=== PATIENT | female | born 1960 | race Caucasian/White ===

== ENCOUNTER 2021-02-12 11:51 | Inpatient (IN) ==
[2021-02-12] MEDS ORDERED: *HR* Dextrose 50 % in Water (Syg) 50 ML SYRINGE IVP ONE (14:28)
[2021-02-12] MEDS ORDERED: Ondansetron 4 MG/2 ML VIAL IVP PRN (14:36)
[2021-02-12] MEDS ORDERED: Naloxone 0.4 MG/ML INJ IVP PRN (14:36)
[2021-02-12] MEDS ORDERED: Ipratropium/Albuterol Neb 3 ML IH PRN (17:38)
[2021-02-12 17:52] LABS: Bilirubin,Urine Negative (Negative); Blood,Urine Small (Negative); Clarity,Urine Ex.Turbid (Clear); Color,Urine Yellow (Yellow); Glucose,Urine (UA) Normal (Normal); Ketones,Urine Negative (Negative); Leukocyte Esterase,Urine Large (Negative); Nitrite,Urine Negative (Negative); Protein,Urine 200 mg/dL (Neg-Trace); RBC,Urine 30-50 per hpf (0-3); Specific Gravity,Urine 1.011 (1.010-1.025); WBC,Urine TNTC per hpf (0-3)
[2021-02-12] MEDS: Budesonide/Formoterol 160/4.5 1 PUFF INH IH SCH (21:08)
[2021-02-12 21:34] LABS: Hepatitis B Surface Antibody < 3.10 mIU/mL
[2021-02-12 21:43] LABS: Hepatitis B Surface Antigen Nonreactive (Nonreactive)
[2021-02-13 06:35] LABS: Magnesium 1.7 mg/dL (1.6-2.6); Potassium 3.9 mEq/L (3.5-5.1)
[2021-02-13 06:44] LABS: Thyroid Stimulating Hormone 0.494 mcIU/mL (0.340-5.600)
[2021-02-13 07:22] LABS: Hematocrit 26.3 % (35.3-44.9); Hemoglobin 8.6 g/dL (11.5-15.4); Mean Corpuscular HGB Conc 32.7 g/dL (31.6-35.5); Mean Corpuscular Hemoglobin 31.7 pg (28.0-33.3); Mean Platelet Volume 7.9 fL (9.4-12.4); Nucleated Red Blood Cells 0.2 /100 WBC (0); Platelet Count 177 K/mcL (140-400); Red Blood Count 2.71 M/mcL (3.82-4.97); Red Cell Distribution Width 19.7 % (11.5-14.5)
[2021-02-13] MEDS ORDERED: levoFLOXacin 750 MG/150 ML 750 MG/150 ML BAG IVPB SCH (08:00)
[2021-02-13] MEDS: allopurinoL 100 MG TABLET PO SCH (08:06)
[2021-02-13] MEDS: Budesonide/Formoterol 160/4.5 1 PUFF INH IH SCH (08:12)
[2021-02-13 08:35] LABS: Lymphocytes # 2.3 K/mcL (0.6-4.6); Monocytes # 1.4 K/mcL (0.0-1.3); Neutrophils # 8.8 K/mcL (1.6-8.9); Platelet Estimate Normal (Normal)
[2021-02-13] MEDS ORDERED: 0.9 % Sodium Chloride 250 ML IVC PRN (08:54)
[2021-02-13] MEDS ORDERED: *HR* Heparin 10,000 UNIT/10 ML VIAL IV PRN (08:54)
[2021-02-13] MEDS ORDERED: Aspirin Enteric Coated 81 MG Tablet PO SCH (09:00)
[2021-02-13] MEDS ORDERED: traZODone 50 MG TABLET PO SCH (09:00)
[2021-02-13] MEDS ORDERED: 0.9 % Sodium Chloride 1,000 ML PRIME SCH (09:00)
[2021-02-13] MEDS ORDERED: Mirtazapine 15 MG TABLET PO SCH (09:00)
[2021-02-13] MEDS ORDERED: Albumin 25% 25gram/100mL 25 GM/100 ML IV.SOLN IVPB ONE (11:45)
[2021-02-13 16:36] LABS: Hematocrit 20.7 % (35.3-44.9)
[2021-02-13 16:39] LABS: Hemoglobin 6.8 g/dL (11.5-15.4)
[2021-02-13] MEDS ORDERED: Isovue-370 500 ML BOTTLE IVP ONE (17:57)
[2021-02-13] MEDS ORDERED: Dextrose Gel 15 GM/37.5 ML TUBE PO PRN ×2 (18:00)
[2021-02-13] MEDS ORDERED: *HR* Heparin 5,000 UNIT/ML VIAL SQ SCH (18:00)
[2021-02-13] MEDS ORDERED: D5% in Water 1,000 ML IVC PRN (18:00)
[2021-02-13] MEDS ORDERED: 0.9 % Sodium Chloride 250 ML IVC SCH (18:00)
[2021-02-13] MEDS: Insulin LISPRO 300 UNITS/3 ML VIAL SUBQ SCH (18:55)
[2021-02-13 19:31] LABS: Hematocrit 19.8 % (35.3-44.9); Hemoglobin 6.4 g/dL (11.5-15.4)
[2021-02-13] MEDS: Divalproex Sodium 125 MG Sprinkle Capsule (DR) PO SCH (20:22)
[2021-02-13] MEDS: Pantoprazole 40 MG VIAL IVP SCH (20:22)
[2021-02-14] MEDS: Insulin LISPRO 300 UNITS/3 ML VIAL SUBQ SCH ×5 (00:52→23:47)
[2021-02-14] MEDS: Pantoprazole 40 MG VIAL IVP SCH ×2 (05:08→17:09)
[2021-02-14 06:31] LABS: Basophils % 0.1 %; Eosinophils % 0.3 %; Hematocrit 18.7 % (35.3-44.9); Immature Granulocytes % 8.3 % (0-4); Immature Platelets 0.8 % (1.1-6.1); Lymphocytes # 1.5 K/mcL (0.6-4.6); Lymphocytes % 15.8 %; Mean Corpuscular HGB Conc 31.6 g/dL (31.6-35.5); Mean Corpuscular Hemoglobin 30.9 pg (28.0-33.3); Mean Corpuscular Volume 97.9 fL (83.0-100.0); Mean Platelet Volume 8.6 fL (9.4-12.4); Monocytes # 0.8 K/mcL (0.0-1.3); Monocytes % 8.5 %; Neutrophils # 6.2 K/mcL (1.6-8.9); Nucleated Red Blood Cells 0.3 /100 WBC (0); Platelet Count 142 K/mcL (140-400); Red Blood Count 1.91 M/mcL (3.82-4.97); Red Cell Distribution Width 17.6 % (11.5-14.5); White Blood Count 9.2 K/mcL (4.3-11.1)
[2021-02-14 06:41] LABS: Hemoglobin 5.9 g/dL (11.5-15.4)
[2021-02-14] MEDS: *HR* Dextrose 50 % in Water (Syg) 50 ML SYRINGE IVP PRN ×4 (06:42→23:46)
[2021-02-14 06:55] LABS: Platelet Estimate Normal (Normal)
[2021-02-14 06:56] LABS: Toxic Granulation Present (Not Present)
[2021-02-14 07:38] LABS: BUN/Creatinine Ratio 6 (6-26); Blood Urea Nitrogen 11 mg/dL (8-23); Calcium 7.6 mg/dL (8.6-10.3); Carbon Dioxide 31 mEq/L (23-29); Chloride 104 mEq/L (98-107); Glucose 75 mg/dL (70-105); Magnesium 1.5 mg/dL (1.6-2.6); Osmolality,Calculated 278 (280-300); Phosphorous < 1.0 mg/dL (2.7-4.5); Potassium 3.9 mEq/L (3.5-5.1); Sodium 135 mEq/L (136-145); eGFR For African Americans 34 (> 60); eGFR For Non-African Americans 28 (> 60)
[2021-02-14] MEDS: allopurinoL 100 MG TABLET PO SCH (09:35)
[2021-02-14] MEDS: Divalproex Sodium 125 MG Sprinkle Capsule (DR) PO SCH ×2 (09:35→20:20)
[2021-02-14] MEDS: Budesonide/Formoterol 160/4.5 1 PUFF INH IH SCH ×3 (09:57→23:29)
[2021-02-14] MEDS ORDERED: 0.9 % Sodium Chloride 250 ML IVC PRN (10:39)
[2021-02-14] MEDS ORDERED: *HR* Heparin 10,000 UNIT/10 ML VIAL IV PRN (10:39)
[2021-02-14] MEDS ORDERED: 0.9 % Sodium Chloride 250 ML IVC SCH (11:00)
[2021-02-14] MEDS ORDERED: *HR* Propofol 200 MG/20 ML VIAL IVP ONE (11:36)
[2021-02-14] MEDS: 0.9 % Sodium Chloride 1,000 ML IVC SCH (12:09)
[2021-02-14] MEDS ORDERED: Lidocaine -MPF 2% 5 ML VIAL ONE (12:45)
[2021-02-14] MEDS ORDERED: EPHEDrine 50 MG/ML VIAL ONE (12:46)
[2021-02-14] MEDS ORDERED: Albumin 25% 25gram/100mL 25 GM/100 ML IV.SOLN IVPB ONE (14:03)
[2021-02-14 14:38] LABS: Immature Reticulocyte % 25.7 % (11.0-38.0); Retculocyte # 0.07 M/mcL (0.05-0.10); Reticulocyte % 2.2 % (1.6-2.8)
[2021-02-14 18:51] LABS: Hematocrit 35.5 % (35.3-44.9)
[2021-02-14 18:53] LABS: Hemoglobin 11.8 g/dL (11.5-15.4)
[2021-02-14] MEDS: traZODone 50 MG TABLET PO SCH (20:19)
[2021-02-14] MEDS: Doxycycline 100 MG CAPSULE PO SCH (20:21)
[2021-02-14] MEDS: Melatonin 3 MG TABLET PO SCH (20:21)
[2021-02-14] MEDS: Mirtazapine 15 MG TABLET PO SCH (22:19)
[2021-02-15 05:36] LABS: Hematocrit 33.4 % (35.3-44.9); Hemoglobin 11.3 g/dL (11.5-15.4)
[2021-02-15 05:56] LABS: Calcium 8.8 mg/dL (8.6-10.3); Potassium 3.6 mEq/L (3.5-5.1)
[2021-02-15 05:58] LABS: Alanine Aminotransferase 8 Units/L (7-52); Albumin 2.2 g/dL (3.5-5.7); Albumin/Globulin Ratio 0.7 (1.1-2.2); Alkaline Phosphatase 130 Units/L (34-104); Aspartate Amino Transferase 29 Units/L (13-39); BUN/Creatinine Ratio 6 (6-26); Bilirubin,Total 1.5 mg/dL (0.3-1.0); Blood Urea Nitrogen 16 mg/dL (8-23); Calcium 8.8 mg/dL (8.6-10.3); Carbon Dioxide 28 mEq/L (23-29); Chloride 102 mEq/L (98-107); Globulin 3.1 g/dL (2.4-3.5); Glucose 51 mg/dL (70-105); Osmolality,Calculated 277 (280-300); Potassium 3.6 mEq/L (3.5-5.1); Sodium 134 mEq/L (136-145); Total Protein 5.3 g/dL (6.4-8.9); eGFR For African Americans 24 (> 60); eGFR For Non-African Americans 20 (> 60)
[2021-02-15 06:00] LABS: Magnesium 1.5 mg/dL (1.6-2.6); Phosphorous 1.3 mg/dL (2.7-4.5)
[2021-02-15] MEDS: Insulin LISPRO 300 UNITS/3 ML VIAL SUBQ SCH ×3 (06:12→16:17)
[2021-02-15] MEDS: Pantoprazole 40 MG VIAL IVP SCH (06:12)
[2021-02-15 06:22] LABS: Ferritin > 1500 ng/mL (10-120)
[2021-02-15 06:26] LABS: Folate 8.8 ng/mL (3.0-16.0)
[2021-02-15 06:30] LABS: Hematocrit 34.3 % (35.3-44.9); Hemoglobin 11.5 g/dL (11.5-15.4); Mean Corpuscular HGB Conc 33.5 g/dL (31.6-35.5); Mean Corpuscular Hemoglobin 29.4 pg (28.0-33.3); Mean Corpuscular Volume 87.7 fL (83.0-100.0); Mean Platelet Volume 7.9 fL (9.4-12.4); Platelet Count 124 K/mcL (140-400); Red Blood Count 3.91 M/mcL (3.82-4.97); Red Cell Distribution Width 18.6 % (11.5-14.5); White Blood Count 15.4 K/mcL (4.3-11.1)
[2021-02-15 06:54] LABS: Anisocytosis 1+ (Not Present); Basophils # 0.3 K/mcL (0.0-0.2); Lymphocytes # 2.8 K/mcL (0.6-4.6); Neutrophils # 12.3 K/mcL (1.6-8.9); Platelet Estimate Normal (Normal)
[2021-02-15] MEDS ORDERED: 0.9 % Sodium Chloride 250 ML IVC PRN (06:55)
[2021-02-15] MEDS: Budesonide/Formoterol 160/4.5 1 PUFF INH IH SCH ×2 (07:42→21:37)
[2021-02-15] MEDS: Doxycycline 100 MG CAPSULE PO SCH ×2 (08:32→21:22)
[2021-02-15] MEDS: Divalproex Sodium 125 MG Sprinkle Capsule (DR) PO SCH ×2 (08:32→21:23)
[2021-02-15] MEDS: 0.9 % Sodium Chloride 1,000 ML IVC SCH (08:33)
[2021-02-15] MEDS: allopurinoL 100 MG TABLET PO SCH (08:33)
[2021-02-15] MEDS ORDERED: Albumin 25% 25gram/100mL 25 GM/100 ML IV.SOLN IVPB PRN (10:38)
[2021-02-15] MEDS ORDERED: Albumin 25% 25gram/100mL 25 GM/100 ML IV.SOLN ONE (10:42)
[2021-02-15] MEDS ORDERED: *HR* Heparin 10,000 UNIT/10 ML VIAL IV PRN (13:56)
[2021-02-15 14:06] LABS: Hematocrit 33.8 % (35.3-44.9); Hemoglobin 11.1 g/dL (11.5-15.4)
[2021-02-15] MEDS: Mirtazapine 15 MG TABLET PO SCH (21:22)
[2021-02-15] MEDS: Melatonin 3 MG TABLET PO SCH (21:23)
[2021-02-15] MEDS: traZODone 50 MG TABLET PO SCH (21:23)
[2021-02-16] MEDS: Insulin LISPRO 300 UNITS/3 ML VIAL SUBQ SCH ×4 (00:34→16:34)
[2021-02-16] MEDS: Budesonide/Formoterol 160/4.5 1 PUFF INH IH SCH ×2 (08:21→22:45)
[2021-02-16] MEDS: Divalproex Sodium 125 MG Sprinkle Capsule (DR) PO SCH ×2 (09:20→20:09)
[2021-02-16] MEDS: allopurinoL 100 MG TABLET PO SCH (09:21)
[2021-02-16] MEDS: Doxycycline 100 MG CAPSULE PO SCH ×2 (09:21→20:09)
[2021-02-16] MEDS: Aspirin Enteric Coated 81 MG Tablet PO SCH (09:21)
[2021-02-16 10:27] LABS: Hematocrit 36.3 % (35.3-44.9); Hemoglobin 11.5 g/dL (11.5-15.4); Mean Corpuscular HGB Conc 31.7 g/dL (31.6-35.5); Mean Corpuscular Hemoglobin 28.5 pg (28.0-33.3); Mean Corpuscular Volume 90.1 fL (83.0-100.0); Mean Platelet Volume 8.3 fL (9.4-12.4); Platelet Count 117 K/mcL (140-400); Red Blood Count 4.03 M/mcL (3.82-4.97); Red Cell Distribution Width 19.6 % (11.5-14.5); White Blood Count 14.9 K/mcL (4.3-11.1)
[2021-02-16 10:36] LABS: Calcium 9.3 mg/dL (8.6-10.3); Phosphorous 1.4 mg/dL (2.7-4.5); Potassium 3.8 mEq/L (3.5-5.1)
[2021-02-16 11:19] LABS: Basophils # 0.3 K/mcL (0.0-0.2); Lymphocytes # 2.4 K/mcL (0.6-4.6); Monocytes # 1.5 K/mcL (0.0-1.3); Neutrophils # 10.7 K/mcL (1.6-8.9); Platelet Estimate Slight Decrease (Normal)
[2021-02-16] MEDS: traZODone 50 MG TABLET PO SCH (20:09)
[2021-02-16] MEDS: Mirtazapine 15 MG TABLET PO SCH (20:10)
[2021-02-16] MEDS: Melatonin 3 MG TABLET PO SCH (20:10)
[2021-02-16] MEDS: 0.9 % Sodium Chloride 1,000 ML IVC SCH (20:11)
[2021-02-17] MEDS: Insulin LISPRO 300 UNITS/3 ML VIAL SUBQ SCH ×4 (00:17→17:54)
[2021-02-17] MEDS: 0.9 % Sodium Chloride 1,000 ML IVC SCH (00:18)
[2021-02-17 05:06] LABS: Hematocrit 32.4 % (35.3-44.9); Hemoglobin 10.6 g/dL (11.5-15.4); Immature Platelets 1.4 % (1.1-6.1); Mean Corpuscular HGB Conc 32.7 g/dL (31.6-35.5); Mean Corpuscular Hemoglobin 29.3 pg (28.0-33.3); Mean Corpuscular Volume 89.5 fL (83.0-100.0); Mean Platelet Volume 8.4 fL (9.4-12.4); Platelet Count 144 K/mcL (140-400); Red Blood Count 3.62 M/mcL (3.82-4.97); Red Cell Distribution Width 19.5 % (11.5-14.5); White Blood Count 15.6 K/mcL (4.3-11.1)
[2021-02-17 05:27] LABS: Calcium 9.2 mg/dL (8.6-10.3); Magnesium 1.6 mg/dL (1.6-2.6); Phosphorous 1.9 mg/dL (2.7-4.5); Potassium 3.6 mEq/L (3.5-5.1)
[2021-02-17 05:31] LABS: Lymphocytes # 2.5 K/mcL (0.6-4.6); Monocytes # 0.6 K/mcL (0.0-1.3); Neutrophils # 12.2 K/mcL (1.6-8.9); Platelet Estimate Normal (Normal); Reactive Lymphocytes Present (Not Present)
[2021-02-17] MEDS ORDERED: 0.9 % Sodium Chloride 250 ML IVC PRN (07:38)
[2021-02-17] MEDS ORDERED: 0.9 % Sodium Chloride 1,000 ML PRIME SCH ×2 (07:45→08:00)
[2021-02-17] MEDS: Divalproex Sodium 125 MG Sprinkle Capsule (DR) PO SCH ×2 (07:53→19:59)
[2021-02-17] MEDS ORDERED: *HR* Heparin 10,000 UNIT/10 ML VIAL IV PRN (07:54)
[2021-02-17] MEDS: Doxycycline 100 MG CAPSULE PO SCH ×2 (07:56→20:00)
[2021-02-17] MEDS: allopurinoL 100 MG TABLET PO SCH (07:57)
[2021-02-17] MEDS: Aspirin Enteric Coated 81 MG Tablet PO SCH (07:57)
[2021-02-17] MEDS: Budesonide/Formoterol 160/4.5 1 PUFF INH IH SCH (10:15)
[2021-02-17 19:25] VITALS: BP 95/49; PULSE 92; TEMP 98.1; O2SAT 96
[2021-02-17] MEDS: Mirtazapine 15 MG TABLET PO SCH (19:59)
[2021-02-17] MEDS: traZODone 50 MG TABLET PO SCH (19:59)
[2021-02-17 22:02] LABS: Lambda Qnt Free Light Chains 207.6 mg/L (5.71-26.30)
[2021-02-18 13:46] LABS: Kappa Qnt Free Light Chains 284.93 mg/L (3.30-19.40)
== END 2021-02-17 20:15 | DRG 207 ==
LOC: 2ANU → SUATTDRO 13:58
PROVIDERS: ADMIT Hospitalist; ATTEND Internal Medicine

== ENCOUNTER 2021-02-19 18:48 | Inpatient (IN) ==
[2021-02-19] MEDS ORDERED: Acetaminophen 325 MG TABLET PO PRN (23:22)
[2021-02-19] MEDS ORDERED: Naloxone 0.4 MG/ML INJ IVP PRN (23:22)
[2021-02-19] MEDS ORDERED: Ondansetron 4 MG/2 ML VIAL IVP PRN (23:22)
[2021-02-19] MEDS ORDERED: Ipratropium/Albuterol Neb 3 ML IH PRN (23:57)
[2021-02-20] MEDS ORDERED: Dextrose Gel 15 GM/37.5 ML TUBE PO PRN ×2 (00:11)
[2021-02-20] MEDS: Insulin LISPRO 300 UNITS/3 ML VIAL SUBQ SCH ×6 (01:27→22:27)
[2021-02-20] MEDS ORDERED: Vancomycin 1,250 MG/262.5 ML IV.SOLN IVPB ONE (03:00)
[2021-02-20 03:58] LABS: Calcium 9.3 mg/dL (8.6-10.3); Magnesium 1.8 mg/dL (1.6-2.6); Phosphorous 1.4 mg/dL (2.7-4.5); Potassium 3.4 mEq/L (3.5-5.1); Thyroid Stimulating Hormone 2.278 mcIU/mL (0.340-5.600)
[2021-02-20] MEDS: *HR* Dextrose 50 % in Water (Syg) 50 ML SYRINGE IVP PRN ×3 (05:09→18:00)
[2021-02-20] MEDS: *HR* Heparin 5,000 UNIT/ML VIAL SQ SCH ×3 (05:11→22:30)
[2021-02-20] MEDS ORDERED: Cefepime HCl 2,000 MG in 0.9 % Sodium Chloride Mini Bag 100 ML IVPB SCH (06:00)
[2021-02-20 06:10] LABS: Basophils # 0.2 K/mcL (0.0-0.2); Basophils % 1.5 %; Eosinophils % 0.4 %; Hemoglobin 9.2 g/dL (11.5-15.4); Immature Granulocytes % 5.8 % (0-4); Lymphocytes # 2.6 K/mcL (0.6-4.6); Lymphocytes % 24.2 %; Mean Corpuscular HGB Conc 32.9 g/dL (31.6-35.5); Mean Corpuscular Volume 91.2 fL (83.0-100.0); Mean Platelet Volume 9.5 fL (9.4-12.4); Monocytes # 0.6 K/mcL (0.0-1.3); Monocytes % 5.8 %; Neutrophils # 6.6 K/mcL (1.6-8.9); Platelet Count 109 K/mcL (140-400); Red Blood Count 3.07 M/mcL (3.82-4.97); Red Cell Distribution Width 19.8 % (11.5-14.5); Segmented Neutrophils % 62.3 %; White Blood Count 10.6 K/mcL (4.3-11.1)
[2021-02-20 06:17] LABS: INR 1.3; Prothrombin Time 14.5 Seconds (9.4-12.1)
[2021-02-20 06:30] LABS: Anisocytosis 2+ (Not Present); Platelet Estimate Decreased (Normal)
[2021-02-20 07:17] LABS: Estimated Average Glucose 97 mg/dl
[2021-02-20] MEDS: D5% in Water 1,000 ML IVC PRN (17:15)
[2021-02-20] MEDS ORDERED: Cefepime HCl 1,000 MG in Water for inj. (sterile) 10 ML IVP SCH (18:00)
[2021-02-21 06:52] LABS: Basophils # 0.1 K/mcL (0.0-0.2); Eosinophils # 0.1 K/mcL (0.0-0.6); Eosinophils % 0.5 %; Hematocrit 24.8 % (35.3-44.9); Hemoglobin 8.2 g/dL (11.5-15.4); Immature Granulocytes % 4.6 % (0-4); Lymphocytes # 2.3 K/mcL (0.6-4.6); Lymphocytes % 20.4 %; Mean Corpuscular HGB Conc 33.1 g/dL (31.6-35.5); Mean Corpuscular Hemoglobin 29.8 pg (28.0-33.3); Mean Corpuscular Volume 90.2 fL (83.0-100.0); Mean Platelet Volume 9.3 fL (9.4-12.4); Monocytes # 0.7 K/mcL (0.0-1.3); Monocytes % 6.5 %; Neutrophils # 7.7 K/mcL (1.6-8.9); Platelet Count 106 K/mcL (140-400); Red Blood Count 2.75 M/mcL (3.82-4.97); Red Cell Distribution Width 19.6 % (11.5-14.5); White Blood Count 11.4 K/mcL (4.3-11.1)
[2021-02-21] MEDS: Insulin LISPRO 300 UNITS/3 ML VIAL SUBQ SCH ×2 (07:18→11:57)
[2021-02-21] MEDS: *HR* Heparin 5,000 UNIT/ML VIAL SQ SCH ×2 (07:32→13:38)
[2021-02-21] MEDS: D5% in Water 1,000 ML IVC PRN (07:32)
[2021-02-21 07:36] VITALS: PULSE 80; O2SAT 99
[2021-02-21 07:41] LABS: Calcium 9.4 mg/dL (8.6-10.3); Magnesium 1.7 mg/dL (1.6-2.6); Potassium 3.8 mEq/L (3.5-5.1)
[2021-02-21] MEDS: *HR* Dextrose 50 % in Water (Syg) 50 ML SYRINGE IVP PRN (07:42)
[2021-02-21] MEDS ORDERED: 0.9 % Sodium Chloride 250 ML IVC PRN (07:58)
[2021-02-21] MEDS ORDERED: 0.9 % Sodium Chloride 1,000 ML PRIME SCH (08:00)
[2021-02-21 11:04] LABS: Adenovirus Not Detected (Not Detect); Bordetella Pertussis Not Detected (Not Detect); Chlamydophila pneumoniae Not Detected (Not Detect); Coronavirus 229E Not Detected (Not Detect); Coronavirus HKU1 Not Detected (Not Detect); Coronavirus NL63 Not Detected (Not Detect); Coronavirus OC43 Not Detected (Not Detect); Human Metapneumovirus Not Detected (Not Detect); Human Rhinovirus/Enterovirus Not Detected (Not Detect); Influenza A Subtype 2009 H1 Not Detected (Not Detect); Influenza B Not Detected (Not Detect); Mycoplasma pneumoniae Not Detected (Not Detect); Parainfluenza Virus 1 Not Detected (Not Detect); Parainfluenza Virus 2 Not Detected (Not Detect); Parainfluenza Virus 3 Not Detected (Not Detect); Parainfluenza Virus 4 Not Detected (Not Detect); Respiratory Syncytial Virus Not Detected (Not Detect); SARS-CoV-2 Not Detected (Not Detect)
[2021-02-21 16:04] VITALS: BP 125/59; TEMP 97.9
== END 2021-02-21 15:53 | DRG 139 ==
LOC: 2ANU → SUATTDRO 22:04 → OBSVTOIN 22:04
PROVIDERS: ADMIT Internal Medicine; ATTEND Internal Medicine